=== PATIENT | male | born 1960 | race Caucasian/White ===

== ENCOUNTER 2017-03-08 20:14 | Emergency (ER) | payer SELFPAY ==
[~2017-03-08] VITALS: Ht 175.3 cm; Wt 61.2 kg
[2017-03-08 20:59] VITALS: BP 166/96
--- NOTE | 2017-03-08 23:37 | NUR ---
PATIENT LEFT WITHOUT BEING SEEN BY DR. cotton. NO FURTHER CARE PROVIDED FOR PATIENT.
== END 2017-03-08 23:37 | disposition left against medical advice (07) ==
LOC: MED 20:14
DX: M54.9 Dorsalgia, unspecified (principal); I10 Essential (primary) hypertension; Z53.21 Procedure and treatment not carried out due to patient leaving prior to being seen by health care provider